=== PATIENT | male | born 1980 | race Caucasian/White ===

== ENCOUNTER 2023-11-09 04:46 | Observation (INO) ==
[2023-11-09] MEDS ORDERED: methylPREDNISolone SOD SUCC 125 mg 2 ML VIAL IV ONE (05:16)
[2023-11-09] MEDS ORDERED: Albuterol/Ipratropium NEB.SOL (2.5/0.5 MG) 3 ML NEB.SOLN ONE (05:17)
[2023-11-09] MEDS: Albuterol/Ipratropium NEB.SOL (2.5/0.5 MG) 3 ML NEB.SOLN INH SCH ×3 (05:22→16:08)
[2023-11-09 06:08] LABS: ABS Basophils 0.1 10^3/uL (0.0-0.1); ABS Eosinophils 0.3 10^3/uL (0.0-0.5); ABS Lymphocytes 2.5 10^3/uL (1.0-4.8); ABS Monocytes 1.4 10^3/uL (0.0-1.1); ABS Neutrophils 4.2 10^3/uL (1.5-7.6); ABS Nucleated RBC 0.01 10^3/ul; Eosinophil % 3.5 %; Hemoglobin 14.8 g/dL (13.2-16.3); Lymphocyte % 29.7 %; Mean Corpuscular Hemoglobin 27.8 pg (27-33); Mean Corpuscular Hgb Conc 32.9 g/dL (31-36); Mean Corpuscular Volume 84.3 fL (80-97); Mean Platelet Volume 8.4 fL (7.5-11.2); Nucleated Red Blood Cells % 0.1 %/100WBC (0.0-0.8); Platelet Count 290 10^3/uL (150-450); Red Blood Count 5.34 10^6/uL (4.06-5.63); Red Cell Distribution Width 14.4 % (12-17); White Blood Count 8.5 10^3/uL (3.6-10.2)
[2023-11-09 06:27] LABS: Albumin 4.5 g/dL (3.2-5.2); Albumin/Globulin Ratio 1.4 (1-3); Calcium 9.3 mg/dL (8.6-10.3); Creatinine, Serum 1.06 mg/dL (0.67-1.17); Globulin 3.2 g/dL (2-4); Potassium 3.4 mmol/L (3.5-5.0); Total Bilirubin 0.5 mg/dL (0.2-1.0); Total Protein 7.7 g/dL (6.4-8.9); eGFR CKD-EPI 89.9 (>60)
[2023-11-09] MEDS ORDERED: Lactated Ringers 1000 ml BAG 1,000 ML IV ONE (06:43)
[2023-11-09 06:47] LABS: INR 1.01 (0.83-1.13)
[2023-11-09 07:03] LABS: High Sensitivity Troponin 1 Hr 3 pg/mL (<20)
[2023-11-09] MEDS ORDERED: Iohexol 350 (CONTRAST) 500 ML MDV IV ONE (07:39)
[2023-11-09] MEDS ORDERED: Azithromycin 500 mg/250 ml NS 500 MG/250 ML BAG IVPB ONE (09:52)
[2023-11-09] MEDS ORDERED: cefTRIAXone 1 gm/50 mL D5W 1 GM/50 ML BAG IV ONE (09:52)
[2023-11-09] MEDS ORDERED: Albuterol HFA INHALER 8 gm MDI INH PRN ×2 (11:34→14:25)
[2023-11-09] MEDS ORDERED: Mesalamine RECTAL SUSP 4 GM/60 ML RECTAL.SUS PR PRN ×2 (11:34→14:25)
[2023-11-09] MEDS ORDERED: BALSALAZIDE DISO 750 MG PO SCH (14:00)
[2023-11-09] MEDS ORDERED: Albuterol/Ipratropium NEB.SOL (2.5/0.5 MG) 3 ML NEB.SOLN INH PRN (16:09)
[2023-11-09] MEDS: Albuterol HFA INHALER 8 gm MDI INH SCH ×2 (16:17→20:58)
[2023-11-09] MEDS: BALSALAZIDE DISO 750 MG PO SCH (21:03)
[2023-11-10] MEDS: Albuterol HFA INHALER 8 gm MDI INH SCH ×4 (00:01→11:34)
[2023-11-10 05:59] LABS: Hematocrit 43.9 % (38-53); Hemoglobin 14.3 g/dL (13.2-16.3); Mean Corpuscular Hemoglobin 27.5 pg (27-33); Mean Corpuscular Hgb Conc 32.5 g/dL (31-36); Mean Corpuscular Volume 84.7 fL (80-97); Mean Platelet Volume 8.3 fL (7.5-11.2); Platelet Count 325 10^3/uL (150-450); Red Blood Count 5.18 10^6/uL (4.06-5.63); Red Cell Distribution Width 14.5 % (12-17); White Blood Count 12.7 10^3/uL (3.6-10.2)
[2023-11-10 06:05] LABS: ABS Basophils 0.1 10^3/uL (0.0-0.1); ABS Lymphocytes 1.3 10^3/uL (1.0-4.8); ABS Monocytes 1.8 10^3/uL (0.0-1.1); ABS Neutrophils 9.5 10^3/uL (1.5-7.6); ABS Nucleated RBC 0.01 10^3/ul; Lymphocyte % 10.3 %
[2023-11-10 06:17] LABS: Calcium 9.7 mg/dL (8.6-10.3); Creatinine, Serum 0.87 mg/dL (0.67-1.17); Magnesium 2.2 mg/dL (1.9-2.7); Potassium 4.2 mmol/L (3.5-5.0); eGFR CKD-EPI 110.5 (>60)
[2023-11-10] MEDS: BALSALAZIDE DISO 750 MG PO SCH (08:21)
[2023-11-10 09:33] VITALS: BP 129/83
[2023-11-10] MEDS ORDERED: cefTRIAXone 1 gm/50 mL D5W 1 GM/50 ML BAG IV SCH (10:30)
[2023-11-10] MEDS ORDERED: Azithromycin 500 mg/250 ml NS 500 MG/250 ML BAG IVPB SCH (11:00)
== END 2023-11-10 13:00 | disposition home or self-care (01) ==
LOC: ED 04:46 → EDHOLD 04:46 → MEDTELE 11:31
PROVIDERS: ADMIT Hospitalist; ATTEND Hospitalist